=== PATIENT | male | born 1955 | race Hispanic/Latino ===

== ENCOUNTER 2019-09-25 01:18 | Emergency (ER) | payer BC ==
--- OUTSIDE RECORDS SUMMARY | 2019-09-25 01:21 | XMS REPORT ---
:1955 Author Organization [facility] t Address [address] [place] [address] Care Team Providers Name Role Phone VANIA ALONSO M.D. Unavailable Unavailable FRIDA ALVAREZ M.D. Unavailable Unavailable Problems Condition Condition Condition Status Onset Resolution Last Treatin g Comments Name Details Category Date Date Treatment Clinician Date Hand pain, Hand pain, Problem Active right right Trigger Trigger Problem Active middle middle finger of finger of right hand right hand Allergies, Adverse Reactions, Alerts This patient has no known allergies or adverse reactions. Medications Ordered Filled Start Stop Current Ordering Indication Dosage Frequency Signature Comments Components Medication Medication Date Date Medication? Clinician (SIG) Name Name COMPOUND COMPOUND Yes FRIDA ALVAREZ AIFLUR[place] MEDICATION MEDICATION 8-22 M.D. OFEN 00:00: 10%,AMANTA 00 DINE 10%,CYCLOB ENZAPRINE 2%,BACLOFE N 2%,GABAPEN TIN 6%,LIDOCAI NE 2%GIO. TO AFF. AREA 1-2GM 3-4X DAILY [id number] Encounters Start End Encounter Admission Attending Care Care Encounter Date/Time Date/Time Type Type Clinicians Facility Department ID 2017-05-28 2017-05-28 Appointment [facility] 3 [id number] 09:30:00 09:30:00 ; VANIA ALONSO, at [facility] Yusra CARO M.D. 2017-05-14 2017-05-14 Appointment JASE ALVAREZ [id number] 16:00:00 16:00:00 ; FRIDA ALVAREZ M.D. EVAN, M.D. 2017-04-16 2017-04-16 Appointment JASE ALAVREZ [id number] 11:00:00 11:00:00 ; KIMFRIDA M.D. EVAN, M.D. 2016-11-07 2016-11-07 [facility] [id number] 13:45:00 13:45:00 ; FRIDA ALVAREZ M.D. EVAN, M.D. 2016-08-08 2016-08-08 Appointment [facility] [id number] 13:45:00 13:45:00 ; FRIDA ALVAREZ M.D. EVAN, M.D. 2016-01-21 2016-01-21 Appointment [facility] [id number] 10:15:00 10:15:00 ; FRIDA ALVAREZ M.D. EVAN, M.D.
[2019-09-25] MEDS ORDERED: FENTANYL CITR 100 MCG/2 ML ONE (02:17)
[2019-09-25 02:20] LABS: Absolute Lymphocytes (CBC) 3.2 K/uL (0.7-4.9); Basophils % 0.6 % (0-1.3); Hematocrit 42.6 % (39.6-49.0); Lymphocytes % 40.4 % (15.3-44.8); RBC Red Blood Cell Count 4.66 M/uL (4.33-5.43)
[2019-09-25] MEDS ORDERED: ONDANSETRON 4 MG/2 ML VIAL ONE (02:27)
[2019-09-25] MEDS ORDERED: MORPHINE 4 MG/ML SYR ONE (02:27)
[2019-09-25 02:29] LABS: Urine Blood TRACE (NEG); Urine Glucose NEGATIVE (NEG); Urine Protein NEGATIVE (NEG)
[2019-09-25 02:41] LABS: ALT/SGPT 32 U/L (12-78); AST/SGOT 22 U/L (15-37); Albumin 3.7 g/dL (3.4-5.0); Alkaline Phosphatase 72 U/L (45-117); BUN Blood Urea Nitrogen 16 mg/dL (7-18); Bicarbonate 27 mmol/L (21-32); Bilirubin Direct < 0.1 mg/dL (0-0.2); Bilirubin Total 0.1 mg/dL (0.2-1.0); Glucose Level 94 mg/dL (74-106); Lipase 97 U/L (73-393); Potassium 4.1 mmol/L (3.5-5.1); Protein, Total 7.3 g/dL (6.4-8.2); Sodium Level 143 mmol/L (136-145)
--- NOTE | 2019-09-25 02:58 | ER ---
Nurse's Notes [facility] Name: Patrick Brock Age: 63 yrs Sex: Male : 1955 Arrival Date: 09/25/2019 Time: 01:21 Bed 5 Private MD: Diagnosis: Low back pain-left Presentation: 09/24 01:38 Chief complaint: Patient states: Back pain a 7/10, non radiating, denies recent injury sg or trauma. Coronavirus screen: Proceed with normal triage. Ebola Screen: Patient negative for fever greater than or equal to 101.5 degrees Fahrenheit, and additional compatible Ebola Virus Disease symptoms Patient denies exposure to infectious person. Patient denies travel to an Ebola-affected area in the 21 days before illness onset. No symptoms or risks identified at this time. Initial Sepsis Screen: Does the patient meet any 2 criteria? No. Patient's initial sepsis screen is negative. Does the patient have a suspected source of infection? No. Patient's initial sepsis screen is negative. Risk Assessment: Do you want to hurt yourself or someone else? Patient reports no desire to harm self or others. Onset of symptoms was September 25, 2019. Care prior to arrival: None. 01:38 Method Of Arrival: Ambulatory sg 01:38 Acuity: ROB 4 sg Triage Assessment: 01:40 General: Appears in no apparent distress. uncomfortable, Behavior is calm, cooperative, rr5 appropriate for age. Musculoskeletal: Capillary refill < 3 seconds. Historical: - Allergies: 01:39 No Known Allergies; sg - PSHx: 01:39 nose surgery; sg - Immunization history:: Adult Immunizations up to date. - Social history:: Smoking status: Patient denies any tobacco usage or history of. Screenin:01 Abuse screen: Denies threats or abuse. Denies injuries from another. Nutritional rr5 screening: No deficits noted. Tuberculosis screening: No symptoms or risk factors identified. Fall Risk IV access (20 points). Total Espinoza Fall Scale indicates No Risk (0-24 pts). Assessment: 01:40 General: Appears in no apparent distress. uncomfortable, Behavior is calm, cooperative, rr5 appropriate for age. 01:40 Pain: Complains of pain in left mid back Pain radiates to mid back area Pain currently rr5 is 7 out of 10 on a pain scale. Quality of pain is described as aching, Pain began gradually, Is intermittent. Neuro: Level of Consciousness is awake, alert, obeys commands, Oriented to person, place, time, situation, Appropriate for age. Cardiovascular: Capillary refill < 3 seconds Patient's skin is warm and dry. Respiratory: Airway is patent Respiratory effort is even, unlabored, Respiratory pattern is regular, symmetrical. GI: Abdomen is round. : Reports pain in left flank(s). EENT: No signs and/or symptoms were reported regarding the EENT system. Derm: Skin is intact, is healthy with good turgor, Skin temperature is warm. Musculoskeletal: Circulation, motion, and sensation intact. Capillary refill < 3 seconds, Reports pain in mid back area. 02:30 Reassessment: Patient appears in no apparent distress at this time. Patient is alert, rr5 oriented x 3, equal unlabored respirations, skin warm/dry/pink. awaiting for results. 02:30 Pain: Pain currently is 3 out of 10 on a pain scale. rr5 03:20 Reassessment: Patient appears in no apparent distress at this time. Patient is alert, rr5 oriented x 3, equal unlabored respirations, skin warm/dry/pink. discharge instruction given and explained without complaints made. Patient states feeling better. Patient states symptoms have improved. Vital Signs: 01:38 BP 144 / 70; Pulse 72; Resp 18; Temp 98.2; Pulse Ox 100% on R/A; sg ED Course: 01:21 Patient arrived in ED. ag3 01:33 [facility] cp 01:33 Abelardo Bryant MD is Attending Physician. cp 01:38 Triage completed. sg 01:38 Arm band placed on. sg 01:40 Patient has correct armband on for positive identification. Placed in gown. Bed in low rr5 position. Call light in reach. Pulse ox on. NIBP on. 01:42 Celso Johnson, LIONEL is Primary Nurse. jb4 02:01 Inserted saline lock: 20 gauge in right antecubital area, using aseptic technique. rr5 Blood collected. 02:20 CT Stone Protocol In Process Unspecified. EDMS 03:25 No provider procedures requiring assistance completed. IV discontinued, intact, rr5 bleeding controlled, No redness/swelling at site. Pressure dressing applied. Administered Medications: 02:23 Drug: Zofran (Ondansetron) 4 mg Route: IVP; Site: right antecubital; rr5 03:20 Follow up: Response: No adverse reaction rr5 02:25 Drug: morphine 4 mg {Note: rass 0.} Route: IVP; Site: right antecubital; rr5 03:20 Follow up: Response: No adverse reaction; Pain is decreased; RASS: Alert and Calm (0) rr5 03:28 Not Given (Patient Refused): TORadol - Ketorolac 15 mg IVP once sg 03:28 Not Given (Patient Refused): Flexeril 10 mg PO once sg Outcome: 02:56 Discharge ordered by MD. cp 03:25 Discharged to home ambulatory. rr5 03:25 Condition: stable 03:25 Discharge instructions given to patient, Instructed on discharge instructions, follow up and referral plans. medication usage, Demonstrated understanding of instructions, follow-up care, medications, Prescriptions given X 3. 03:28 Patient left the ED. sg Signatures: Dispatcher [employer] EDMS Tony Navarro RN RN sg Gomez Lewis, PA PA Celso Christianson, RN RN jb4 Mari Sutherland Raymond, RN RN rr5
--- NOTE | 2019-09-25 02:58 | EDPHYS ---
Physician Documentation [facility] Name: Patrick Brock Age: 63 yrs Sex: Male : 1955 Arrival Date: 09/25/2019 Time: 01:21 Bed 5 Private MD: ED Physician Abelardo Bryant HPI: 09/24 01:44 This 63 yrs old Male presents to ER via Ambulatory with complaints of Back cp Pain. 01:44 The patient presents with pain that is acute, with no known mechanism of injury. The cp symptoms are located in the left low back and left mid back. Onset: The symptoms/episode began/occurred this morning. The pain radiates to the abdomen. Associated signs and symptoms: Pertinent negatives: dysuria, fever, incontinence, numbness, urinary retention, vomiting, weakness. The problem was sustained from unknown cause. Historical: - Allergies: 01:39 No Known Allergies; sg - PSHx: 01:39 nose surgery; sg - Immunization history:: Adult Immunizations up to date. - Social history:: Smoking status: Patient denies any tobacco usage or history of. ROS: 01:50 Constitutional: Negative for body aches, chills, fever, poor PO intake. cp 01:50 Eyes: Negative for injury, pain, redness, and discharge. cp 01:50 ENT: Negative for drainage from ear(s), ear pain, sore throat, difficulty swallowing, difficulty handling secretions. 01:50 Cardiovascular: Negative for chest pain. 01:50 Respiratory: Negative for cough, shortness of breath, wheezing. 01:50 Abdomen/GI: Positive for abdominal pain, of the anterior aspect of left lateral abdomen and posterior aspect of left lateral abdomen, Negative for nausea, vomiting, and diarrhea, constipation, bowel incontinence. 01:50 Back: Positive for pain at rest, pain with movement, of the left low back and left mid back, Negative for injury or acute deformity. 01:50 : Negative for urinary symptoms, difficulty urinating, bladder incontinence, testicular pain 01:50 MS/extremity: Negative for injury or acute deformity, pain, paresthesias. 01:50 Neuro: Negative for numbness, weakness. 01:50 All other systems are negative. Exam: 01:55 Constitutional: The patient appears in no acute distress, alert, awake, non-toxic, well cp developed, well nourished, uncomfortable. 01:55 Head/Face: Normocephalic, atraumatic. cp 01:55 Eyes: Periorbital structures: appear normal, Conjunctiva: normal, no exudate, no injection, Sclera: no appreciated abnormality, Lids and lashes: appear normal, bilaterally. 01:55 ENT: External ear(s): are unremarkable, Nose: is normal, Mouth: is normal, Posterior pharynx: Airway: no evidence of obstruction, patent. 01:55 Neck: ROM/movement: is normal, is supple, without pain, no range of motions limitations. 01:55 Chest/axilla: Inspection: normal, Palpation: is normal, no crepitus, no tenderness. 01:55 Cardiovascular: Rate: normal, Rhythm: regular. 01:55 Respiratory: the patient does not display signs of respiratory distress, Respirations: normal, no use of accessory muscles, labored breathing, is not present, Breath sounds: are clear throughout, no decreased breath sounds. 01:55 Abdomen/GI: Inspection: abdomen appears normal, Bowel sounds: active, all quadrants, Palpation: abdomen is soft and non-tender, in all quadrants. 01:55 Back: pain, that is moderate, of the left low back and left mid back, ROM is painful, with all movement. 01:55 Skin: no rash present. 01:55 Neuro: Orientation: to person, place \T\ time. Mentation: is normal, Motor: moves all fours, strength is normal, Sensation: is normal, Gait: is steady, Deep tendon reflexes are 2+ (normal) in the right patellar, right Achilles, left patellar and left Achilles. Vital Signs: 01:38 BP 144 / 70; Pulse 72; Resp 18; Temp 98.2; Pulse Ox 100% on R/A; sg MDM: 01:39 Patient medically screened. cp 02:00 Differential diagnosis: Cholelithiasis Pyelonephritis Ureterolithiasis back pain. cp 02:55 ED course: [place] prescription monitoring program reports narcotic score of 80 and cp sedative score of 40 for patient. 02:55 Data reviewed: vital signs, nurses notes, lab test result(s), radiologic studies, CT cp scan. 02:55 Counseling: I had a detailed discussion with the patient and/or guardian regarding: the cp historical points, exam findings, and any diagnostic results supporting the discharge/admit diagnosis, lab results, radiology results, the need for outpatient follow up, a family practitioner, to return to the emergency department if symptoms worsen or persist or if there are any questions or concerns that arise at home. Response to treatment: the patient's symptoms have markedly improved after treatment, VSS. Pain improved with meds, and as a result, I will discharge patient. 09/24 01:46 Order name: Basic Metabolic Panel; Complete Time: 02:49 cp 09/24 02:49 Interpretation: Normal except: CL 108; GFR 77. 09/24 01:46 Order name: CBC with Diff; Complete Time: 02:35 cp 09/24 02:50 Interpretation: Reviewed. 09/24 01:46 Order name: Creatinine for Radiology; Complete Time: 02:49 cp 09/24 02:50 Interpretation: Reviewed. 09/24 01:46 Order name: Hepatic Function; Complete Time: 02:49 cp 09/24 02:49 Interpretation: Normal except: BILIT 0.1; GLOB 3.6; A/G 1.0. 09/24 01:46 Order name: Lipase; Complete Time: 02:49 cp 09/24 02:50 Interpretation: Reviewed. 09/24 01:46 Order name: Urine Microscopic Only 09/24 01:46 Order name: IV Saline Lock; Complete Time: 02:37 cp 09/24 01:46 Order name: Labs collected and sent; Complete Time: 02:37 cp 09/24 01:46 Order name: CT Stone Protocol 09/24 02:22 Order name: Urine Dipstick--Ancillary (enter results); Complete Time: 02:35 mw2 09/24 02:36 Interpretation: Normal except: UBLD TRACE. 09/24 01:46 Order name: Urine Dipstick-Ancillary (obtain specimen); Complete Time: 02:37 cp Administered Medications: 02:23 Drug: Zofran (Ondansetron) 4 mg Route: IVP; Site: right antecubital; rr5 03:20 Follow up: Response: No adverse reaction rr5 02:25 Drug: morphine 4 mg {Note: rass 0.} Route: IVP; Site: right antecubital; rr5 03:20 Follow up: Response: No adverse reaction; Pain is decreased; RASS: Alert and Calm (0) rr5 03:28 Not Given (Patient Refused): TORadol - Ketorolac 15 mg IVP once sg 03:28 Not Given (Patient Refused): Flexeril 10 mg PO once sg Disposition: 03:41 Co-signature as Attending Physician, Abelardo Bryant MD. [email or web address] Disposition: 09/25/19 02:56 Discharged to Home. Impression: Low back pain - left. - Condition is Stable. - Discharge Instructions: Back Pain, Adult, Back Exercises. - Prescriptions for Cyclobenzaprine 10 mg Oral Tablet - take 1 tablet by ORAL route every 8 hours As needed no driving while taking medication; 20 tablet. Diclofenac Sodium 75 mg Oral Tablet Sustained Release - take 1 tablet by ORAL route 2 times per day; 30 tablet. Tramadol 50 mg Oral Tablet - take 1 tablet by ORAL route every 8 hours as needed. No driving while taking medication; 20 tablet. - Medication Reconciliation Form, Thank You Letter, Antibiotic Education, Prescription Opioid Use form. - Follow up: Private Physician; When: 2 - 3 days; Reason: Recheck today's complaints. - Problem is new. - Symptoms have improved. Signatures: Dispatcher [employer] EDTony Myers RN RN Abelardo Hernandez MD MD pkl Gomez Lewis PA PA cp Roque, Raymond, RN RN rr5 Corrections: (The following items were deleted from the chart) 03:28 02:56 09/25/2019 02:56 Discharged to Home. Impression: Low back pain - left. Condition sg is Stable. Forms are Medication Reconciliation Form, Thank You Letter, Antibiotic Education, Prescription Opioid Use. Follow up: Private Physician; When: 2 - 3 days; Reason: Recheck today's complaints. Problem is new. Symptoms have improved. cp
[2019-09-25 03:02] LABS: Urine Bacteria <20 /HPF (NONE SEEN); Urine Culture Reflex Order NOT NEEDED; Urine RBC <5 /HPF (NONE SEEN)
[2019-09-25 03:35] VITALS: BP 144/70; TEMP 98.2; O2SAT 100
--- NOTE | 2019-09-25 12:59 | RAD REPORT ---
EXAM DESCRIPTION: CT - Stone Protocol - 09/25/2019 6:53 am CLINICAL HISTORY: Left mid and low back pain TECHNIQUE: Contiguous axial images obtained through the abdomen and pelvis without IV contrast. Marissa nal and sagittal reformatted images were provided. This exam was performed according to our departmental dose-optimization program, which includes autom ated exposure control, adjustment of the mA and/or kV according to patient size and/or use of iterati ve reconstruction technique. COMPARISON: None available for comparison. FINDINGS: Lung bases: No focal consolidation. Coronary artery calcification. Liver: 8 mm right posterior hepatic hypodensity which is too small to characterize. Gallbladder and biliary system: Unremarkable Pancreas: Grossly unremarkable Spleen: Grossly unremarkable Adrenals: Unremarkable Kidneys: No calculi. No hydronephrosis. Bowel: Moderate stool. No obstruction. No appreciable mucosal thickening. Appendix: Normal caliber appendix. No findings to suggest acute appendicitis. Urinary bladder: Unremarkable Reproductive: Unremarkable as visualized Lymph nodes: No pathologically enlarged lymph nodes. Peritoneum: No focal fluid collection. No free air. Vessels: Mild atherosclerotic disease. No abdominal aortic aneurysm. Abdominal wall: Unremarkable Bones: Multilevel spondylosis. No acute fracture. IMPRESSION: 1. No acute abnormality identified within the abdomen and pelvis. 2. Other findings as above. Electronically signed by: Saran Clarke MD 09/25/2019 2:36 AM CDT Due to temporary technical issues with the PACS/Fluency reporting system, reports are being signed by the in house radiologist as a courtesy to ensure prompt reporting. The interpreting radiologist is f ully responsible for the content of the report.
== END 2019-09-25 03:28 | disposition home or self-care (01) ==
LOC: ER 01:18
DX: M54.5 Low back pain (principal)
CPT/HCPCS: 85025; 80048; 36415; 80076; 83690; 76377; 74176; 96375; 96374; 99284; J2405; 81003; 81015; J3010

== ENCOUNTER 2021-11-25 17:14 | Emergency (ER) | payer BC ==
--- OUTSIDE RECORDS SUMMARY | 2021-11-25 17:18 | XMS REPORT | Continuity of Care Document ---
:1955 Author Organization [facility] t Address [address] [place] [address] Care Team Providers Name Role Phone PCP, DOES NOT HAVE A Primary Care Physician Unavailable [email or web address] Attending Clinician Unavailable Rayshawn Mckenna Attending Clinician [phone] Efra OLIVO S Attending Clinician Charlee KRAUS Attending Clinician Unavailable Doctor Unassigned, Name Attending Clinician Unavailable David Herrera DO Attending Clinician Kaylyn WHITT L Attending Clinician Kaila PATIÑO Attending Clinician Unavailable Pob, Lab Main Attending Clinician Unavailable Pcp, Does Not Have A Attending Clinician Human LICENSED APPRAISER, F Attending Clinician Coy FLOWERS, T Attending Clinician Unavailable Lab, Fam Pob I Attending Clinician Unavailable Anene LICENSED APPRAISER Attending Clinician ANENE Attending Clinician Unavailable GAVIN Attending Clinician Unavailable KIM Attending Clinician Unavailable [email or web address] Admitting Clinician Unavailable Payers Payer Name Policy Type Policy Number Effective Date Expiration Date Charlee pan[place] [id number] 2020 00:00:00 [place] Problems Condition Condition Condition Status Onset Resolution Last Treating Co mments Source Name Details Category Date Date Treatment Clinician Date Hand pain, Hand pain, Problem Active [facility] right right Physici ans Trigger Trigger Problem Active [facility] middle middle Physici finger of finger of ans right hand right hand No known No known Disease Unive rs active active ity of problems problems [facility] Allergies, Adverse Reactions, Alerts Allergy Allergy Status Severity Reaction(s) Onset Inactive Treating Comm ents Source Name Type Date Date Clinician NO KNOWN Drug Active Univers ALLERGIE Class ity of S [facility] Social History Social Habit Start Date Stop Date Quantity Comments Source Exposure to Not sure [facility] SARS-CoV-2 (event) Medica l Branch History of tobacco Smoker Univer [facility] use [facility] Tobacco use and 2020-09-28 2020-09-28 Never used [facility] exposure 00:00:00 00:00:00 [facility] Sex [birth year] [facility] 00:00:00 00:00:00 [facility] Smoking Status Start Date Stop Date Source Unknown if ever smoked [facility] Former smoker 2020-09-28 00:00:00 2020-09-28 00:00:00 [facility] Medications Ordered Filled Start Stop Current Ordering Indication Dosage Frequency Signature Comments Components Source Medication Medication Date Date Medication? Clinician (SIG) Name Name meloxicam 2020- No [id number] 15mg Take 1 Univers 15 mg 4-30 05-31 tablet by ity of tablet 00:00: 04:59 mouth [place] 00 :00 daily for Medical 30 days. Branch meloxicam 2020- No [id number] 15mg Take 1 Univers 15 mg 4-30 05-31 tablet by ity of tablet 00:00: 04:59 mouth [place] 00 :00 daily for Medical 30 days. Branch meloxicam 2020- No [id number] 15mg Take 1 Univers 15 mg 4-30 05-31 tablet by ity of tablet 00:00: 04:59 mouth [place] 00 :00 daily for Medical 30 days. Branch triamcinolo 2020- No [id number] 40mg Univers ne -13 09-15 ity of acetonide 22:30: 21:23 [place] (KENALOG) 00 :00 Medical injection Branch 40 mg triamcinolo 2020- No [id number] 40mg 40 mg, Univers ne -15 -15 Intra-leeanna ity of acetonide 22:30: 21:23 [place], [place] (KENALOG) 00 :00 ONCE, 1 Medical injection dose, Salima Branc h 40 mg 09/13/20 at 1730, Routine triamcinolo 2020-2020- No [id number] 40mg Univers ne 09-13 ity of acetonide 22:30: 21:23 [place] (KENALOG) 00 :00 Medical injection Branch 40 mg triamcinolo 2020-2020- No [id number] 40mg 40 mg, Univers ne 09-13 Intra-leeanna ity of acetonide 22:30: 21:23 [place], [place] (KENALOG) 00 :00 ONCE, 1 Medical injection dose, Salima Branc h 40 mg 09/13/20 at 1730, Routine diclofenac 1-0 Yes 75mg Take 1 Unive rs 75 mg EC 3-26 tablet by ity of tablet 00:00: mouth (two) Medical times Branch daily with meals. diclofenac 2021-0 Yes 75mg Take 1 Unive rs 75 mg EC 3-26 tablet by ity of tablet 00:00: mouth (two) Medical times Branch daily with meals. diclofenac 2021-0 Yes 75mg Take 1 Unive rs 75 mg EC 3-26 tablet by ity of tablet 00:00: mouth (two) Medical times Branch daily with meals. diclofenac 2021-0 Yes 75mg Take 1 Unive rs 75 mg EC 3-26 tablet by ity of tablet 00:00: mouth [place] (two) Medical times Branch daily with meals. diclofenac 2021-0 Yes 75mg Take 1 Unive rs 75 mg EC 3-26 tablet by ity of tablet 00:00: mouth [place] (two) Medical times Branch daily with meals. diclofenac 2021-0 Yes 75mg Take 1 Unive rs 75 mg EC 3-26 tablet by ity of tablet 00:00: mouth [place] (two) Medical times Branch daily with meals. diclofenac 2021-0 Yes 75mg Take 1 Unive rs 75 mg EC 3-26 tablet by ity of tablet 00:00: mouth [place] (two) Medical times Branch daily with meals. diclofenac 2021-0 Yes 75mg Take 1 Unive rs 75 mg EC 3-26 tablet by ity of tablet 00:00: mouth (two) Medical times Branch daily with meals. diclofenac 2020- No 75mg Take 1 Univ ers 75 mg EC 3-26 04-30 tablet by ity o f tablet 00:00: 00:00 mouth 2 [place] 00 :00 (two) Medical times [place] daily with meals. diclofenac 2020- No 75mg Take 1 Univ ers 75 mg EC 3-26 04-30 tablet by ity o f tablet 00:00: 00:00 mouth 2 [place] 00 :00 (two) Medical times [place] daily with meals. meloxicam 2020- No [id number] 15mg Take 1 Univers 15 mg 3-25 04-25 tablet by ity of tablet 00:00: 04:59 mouth [place] 00 :00 daily for Medical 30 days. [place] meloxicam 2020- No [id number] 15mg Take 1 Univers 15 mg 3-25 04-25 tablet by ity of tablet 00:00: 04:59 mouth [place] 00 :00 daily for Medical 30 days. [place] meloxicam 2020- No [id number] 15mg Take 1 Univers 15 mg 3-25 04-25 tablet by ity of tablet 00:00: 04:59 mouth [place] 00 :00 daily for Medical 30 days. [place] meloxicam 2020- No [id number] 15mg Take 1 Univers 15 mg 3-25 04-25 tablet by ity of tablet 00:00: 04:59 mouth [place] 00 :00 daily for Medical 30 days. [place] meloxicam 2020- No [id number] 15mg Take 1 Univers 15 mg 3-25 04-25 tablet by ity of tablet 00:00: 04:59 mouth [place] 00 :00 daily for Medical 30 days. [place] meloxicam 2020- No [id number] 15mg Take 1 Univers 15 mg 3-25 04-25 tablet by ity of tablet 00:00: 04:59 mouth [place] 00 :00 daily for Medical 30 days. [place] meloxicam 2020- No [id number] 15mg Take 1 Univers 15 mg 3-25 04-25 tablet by ity of tablet 00:00: 04:59 mouth [place] 00 :00 daily for Medical 30 days. [place] meloxicam 2020- No [id number] 15mg Take 1 Univers 15 mg 3-25 04-25 tablet by ity of tablet 00:00: 04:59 mouth [place] 00 :00 daily for Medical 30 days. Branch meloxicam 2020- No [id number] 15mg Take 1 Univers 15 mg 3-25 04-25 tablet by ity of tablet 00:00: 04:59 mouth [place] 00 :00 daily for Medical 30 days. Branch meloxicam 2020- No [id number] 15mg Take 1 Univers 15 mg 3-25 04-25 tablet by ity of tablet 00:00: 04:59 mouth [place] 00 :00 daily for Medical 30 days. Branch acetaminoph 2020- Yes 4647 2{tbl} Take 2 Un jose en-codeine 3-05 tablets by ity of (TYLENOL-CO 00:00: mouth [place] DEINE #3) 00 every 4 Medical 300-30 mg (four) Branch tablet hours as needed for Pain (scale 4-6) or Pain (scale 7-10). Indication s: acute pain acetaminoph 2020-0 Yes 4647 2{tbl} Take 2 Un jose en-codeine 3-05 tablets by ity of (TYLENOL-CO 00:00: mouth [place] DEINE #3) 00 every 4 Medical 300-30 mg (four) Branch tablet hours as needed for Pain (scale 4-6) or Pain (scale 7-10). Indication s: acute pain acetaminoph 2020-0 Yes 4647 2{tbl} Take 2 Un jose en-codeine 3-05 tablets by ity of (TYLENOL-CO 00:00: mouth [place] DEINE #3) 00 every 4 Medical 300-30 mg (four) Branch tablet hours as needed for Pain (scale 4-6) or Pain (scale 7-10). Indication s: acute pain acetaminoph 2020-0 Yes 4647 2{tbl} Take 2 Un jose en-codeine 3-05 tablets by ity of (TYLENOL-CO 00:00: mouth [place] DEINE #3) 00 every 4 Medical 300-30 mg (four) Branch tablet hours as needed for Pain (scale 4-6) or Pain (scale 7-10). Indication s: acute pain acetaminoph 2020-0 Yes 4647 2{tbl} Take 2 Un jose en-codeine 3-05 tablets by ity of (TYLENOL-CO 00:00: mouth [place] DEINE #3) 00 every 4 Medical 300-30 mg (four) Branch tablet hours as needed for Pain (scale 4-6) or Pain (scale 7-10). Indication s: acute pain acetaminoph 2021-0 Yes 4647 2{tbl} Take 2 Un jose en-codeine 3-05 tablets by ity of (TYLENOL-CO 00:00: mouth [place] DEINE #3) 00 every 4 Medical 300-30 mg (four) Branch tablet hours as needed for Pain (scale 4-6) or Pain (scale 7-10). Indication s: acute pain acetaminoph 2021-0 Yes 4647 2{tbl} Take 2 Un jose en-codeine 3-05 tablets by ity of (TYLENOL-CO 00:00: mouth [place] DEINE #3) 00 every 4 Medical 300-30 mg (four) Branch tablet hours as needed for Pain (scale 4-6) or Pain (scale 7-10). Indication s: acute pain acetaminoph 2021-0 Yes 4647 2{tbl} Take 2 Un jose en-codeine 3-05 tablets by ity of (TYLENOL-CO 00:00: mouth [place] DEINE #3) 00 every 4 Medical 300-30 mg (four) Branch tablet hours as needed for Pain (scale 4-6) or Pain (scale 7-10). Indication s: acute pain acetaminoph 2021-0 Yes 4647 2{tbl} Take 2 Un jose en-codeine 3-05 tablets by ity of (TYLENOL-CO 00:00: mouth [place] DEINE #3) 00 every 4 Medical 300-30 mg (four) Branch tablet hours as needed for Pain (scale 4-6) or Pain (scale 7-10). Indication s: acute pain acetaminoph 2021-0 Yes 4647 2{tbl} Take 2 Un jose en-codeine 3-05 tablets by ity of (TYLENOL-CO 00:00: mouth [place] DEINE #3) 00 every 4 Medical 300-30 mg (four) Branch tablet hours as needed for Pain (scale 4-6) or Pain (scale 7-10). Indication s: acute pain acetaminoph 2021-0 Yes 4647 2{tbl} Take 2 Un jose en-codeine 3-05 tablets by ity of (TYLENOL-CO 00:00: mouth [place] DEINE #3) 00 every 4 Medical 300-30 mg (four) Branch tablet hours as needed for Pain (scale 4-6) or Pain (scale 7-10). Indication s: acute pain acetaminoph 2021-0 Yes 4647 2{tbl} Take 2 Un jose en-codeine 3-05 tablets by ity of (TYLENOL-CO 00:00: mouth [place] DEINE #3) 00 every 4 Medical 300-30 mg (four) Branch tablet hours as needed for Pain (scale 4-6) or Pain (scale 7-10). Indication s: acute pain acetaminoph 2021-0 Yes 4647 2{tbl} Take 2 Un jose en-codeine 3-05 tablets by ity of (TYLENOL-CO 00:00: mouth [place] DEINE #3) 00 every 4 Medical 300-30 mg (four) Branch tablet hours as needed for Pain (scale 4-6) or Pain (scale 7-10). Indication s: acute pain acetaminoph 2021-0 Yes 4647 2{tbl} Take 2 Un jose en-codeine 3-05 tablets by ity of (TYLENOL-CO 00:00: mouth [place] DEINE #3) 00 every 4 Medical 300-30 mg (four) Branch tablet hours as needed for Pain (scale 4-6) or Pain (scale 7-10). Indication s: acute pain acetaminoph 2021-0 Yes 4647 2{tbl} Take 2 Un jose en-codeine 3-05 tablets by ity of (TYLENOL-CO 00:00: mouth [place] DEINE #3) 00 every 4 Medical 300-30 mg (four) Branch tablet hours as needed for Pain (scale 4-6) or Pain (scale 7-10). Indication s: acute pain acetaminoph 2021-0 Yes 4647 2{tbl} Take 2 Un jose en-codeine 3-05 tablets by ity of (TYLENOL-CO 00:00: mouth [place] DEINE #3) 00 every 4 Medical 300-30 mg (four) Branch tablet hours as needed for Pain (scale 4-6) or Pain (scale 7-10). Indication s: acute pain acetaminoph 2021-0 Yes 4647 2{tbl} Take 2 Un jose en-codeine 3-05 tablets by ity of (TYLENOL-CO 00:00: mouth [place] DEINE #3) 00 every 4 Medical 300-30 mg (four) Branch tablet hours as needed for Pain (scale 4-6) or Pain (scale 7-10). Indication s: acute pain acetaminoph 2021-0 Yes 4647 2{tbl} Take 2 Un jose en-codeine 3-05 tablets by ity of (TYLENOL-CO 00:00: mouth [place] DEINE #3) 00 every 4 Medical 300-30 mg (four) Branch tablet hours as needed for Pain (scale 4-6) or Pain (scale 7-10). Indication s: acute pain acetaminoph 2021-0 Yes 4647 2{tbl} Take 2 Un jose en-codeine 3-05 tablets by ity of (TYLENOL-CO 00:00: mouth [place] DEINE #3) 00 every 4 Medical 300-30 mg (four) Branch tablet hours as needed for Pain (scale 4-6) or Pain (scale 7-10). Indication s: acute pain acetaminoph 2021-0 Yes 4647 2{tbl} Take 2 Un jose en-codeine 3-05 tablets by ity of (TYLENOL-CO 00:00: mouth [place] DEINE #3) 00 every 4 Medical 300-30 mg (four) Branch tablet hours as needed for Pain (scale 4-6) or Pain (scale 7-10). Indication s: acute pain acetaminoph 2021-0 Yes 4647 2{tbl} Take 2 Un jose en-codeine 3-05 tablets by ity of (TYLENOL-CO 00:00: mouth [place] DEINE #3) 00 every 4 Medical 300-30 mg (four) Branch tablet hours as needed for Pain (scale 4-6) or Pain (scale 7-10). Indication s: acute pain acetaminoph 2021-0 Yes 4647 2{tbl} Take 2 Un jose en-codeine 3-05 tablets by ity of (TYLENOL-CO 00:00: mouth [place] DEINE #3) 00 every 4 Medical 300-30 mg (four) Branch tablet hours as needed for Pain (scale 4-6) or Pain (scale 7-10). Indication s: acute pain acetaminoph 2021-0 Yes 4647 2{tbl} Take 2 Un jose en-codeine 3-05 tablets by ity of (TYLENOL-CO 00:00: mouth [place] DEINE #3) 00 every 4 Medical 300-30 mg (four) Branch tablet hours as needed for Pain (scale 4-6) or Pain (scale 7-10). Indication s: acute pain acetaminoph 2021-0 Yes 4647 2{tbl} Take 2 Un jose en-codeine 3-05 tablets by ity of (TYLENOL-CO 00:00: mouth [place] DEINE #3) 00 every 4 Medical 300-30 mg (four) Branch tablet hours as needed for Pain (scale 4-6) or Pain (scale 7-10). Indication s: acute pain acetaminoph 2021-0 Yes 4647 2{tbl} Take 2 Un jose en-codeine 3-05 tablets by ity of (TYLENOL-CO 00:00: mouth [place] DEINE #3) 00 every 4 Medical 300-30 mg (four) Branch tablet hours as needed for Pain (scale 4-6) or Pain (scale 7-10). Indication s: acute pain meloxicam 1-0 Yes 15mg Take 1 Univer s 15 mg 2-10 tablet by ity of tablet 00:00: mouth [place] 00 daily. Medical Branch meloxicam 2021-0 Yes 15mg Take 1 Univer s 15 mg 2-10 tablet by ity of tablet 00:00: mouth [place] 00 daily. Medical Branch meloxicam 2021-0 Yes 15mg Take 1 Univer s 15 mg 2-10 tablet by ity of tablet 00:00: mouth [place] 00 daily. Medical Branch meloxicam 2021-0 Yes 15mg Take 1 Univer s 15 mg 2-10 tablet by ity of tablet 00:00: mouth [place] 00 daily. Medical Branch meloxicam 2021-0 Yes 15mg Take 1 Univer s 15 mg 2-10 tablet by ity of tablet 00:00: mouth [place] 00 daily. Medical Branch meloxicam 2021-0 Yes 15mg Take 1 Univer s 15 mg 2-10 tablet by ity of tablet 00:00: mouth [place] 00 daily. Medical Branch meloxicam 1-0 Yes 15mg Take 1 Univer s 15 mg 2-10 tablet by ity of tablet 00:00: mouth [place] 00 daily. Medical Branch meloxicam 1-0 Yes 15mg Take 1 Univer s 15 mg 2-10 tablet by ity of tablet 00:00: mouth [place] 00 daily. Medical Branch meloxicam 2021-0 Yes 15mg Take 1 Univer s 15 mg 2-10 tablet by ity of tablet 00:00: mouth [place] 00 daily. Medical Branch meloxicam 202-0 Yes 15mg Take 1 Univer s 15 mg 2-10 tablet by ity of tablet 00:00: mouth [place] 00 daily. Medical Branch meloxicam 1-0 Yes 15mg Take 1 Univer s 15 mg 2-10 tablet by ity of tablet 00:00: mouth [place] 00 daily. Medical Branch meloxicam 2020-0 Yes 15mg Take 1 Univer s 15 mg 2-10 tablet by ity of tablet 00:00: mouth [place] 00 daily. Medical Branch meloxicam 2020-0 Yes 15mg Take 1 Univer s 15 mg 2-10 tablet by ity of tablet 00:00: mouth [place] 00 daily. Medical Branch meloxicam 1-0 Yes 15mg Take 1 Univer s 15 mg 2-10 tablet by ity of tablet 00:00: mouth [place] 00 daily. Medical Branch meloxicam 1-0 Yes 15mg Take 1 Univer s 15 mg 2-10 tablet by ity of tablet 00:00: mouth [place] 00 daily. Medical Branch meloxicam 1-0 Yes 15mg Take 1 Univer s 15 mg 2-10 tablet by ity of tablet 00:00: mouth [place] 00 daily. Medical Branch meloxicam 2021-0 Yes 15mg Take 1 Univer s 15 mg 2-10 tablet by ity of tablet 00:00: mouth [place] 00 daily. Medical Branch meloxicam 2021-0 Yes 15mg Take 1 Univer s 15 mg 2-10 tablet by ity of tablet 00:00: mouth [place] 00 daily. Medical Branch meloxicam 2021-0 Yes 15mg Take 1 Univer s 15 mg 2-10 tablet by ity of tablet 00:00: mouth [place] 00 daily. Medical Branch meloxicam 2021-0 Yes 15mg Take 1 Univer s 15 mg 2-10 tablet by ity of tablet 00:00: mouth [place] 00 daily. Medical Branch meloxicam 1-0 Yes 15mg Take 1 Univer s 15 mg 2-10 tablet by ity of tablet 00:00: mouth [place] 00 daily. Medical Branch meloxicam 2020-0 Yes 15mg Take 1 Univer s 15 mg 2-10 tablet by ity of tablet 00:00: mouth [place] 00 daily. Medical Branch meloxicam 2020-0 Yes 15mg Take 1 Univer s 15 mg 2-10 tablet by ity of tablet 00:00: mouth [place] 00 daily. Medical Branch meloxicam 2020-0 Yes 15mg Take 1 Univer s 15 mg 2-10 tablet by ity of tablet 00:00: mouth [place] 00 daily. Medical Branch meloxicam 2020-0 Yes 15mg Take 1 Univer s 15 mg 2-10 tablet by ity of tablet 00:00: mouth [place] 00 daily. Medical Branch meloxicam 2020-0 Yes 15mg Take 1 Univer s 15 mg 2-10 tablet by ity of tablet 00:00: mouth [place] 00 daily. Medical Branch meloxicam 2020-0 Yes 15mg Take 1 Univer s 15 mg 2-10 tablet by ity of tablet 00:00: mouth [place] 00 daily. Medical Branch meloxicam 1-0 Yes 15mg Take 1 Univer s 15 mg 2-10 tablet by ity of tablet 00:00: mouth [place] 00 daily. Medical Branch meloxicam 1-0 Yes 15mg Take 1 Univer s 15 mg 2-10 tablet by ity of tablet 00:00: mouth [place] 00 daily. Medical Branch meloxicam 1-0 Yes 15mg Take 1 Univer s 15 mg 2-10 tablet by ity of tablet 00:00: mouth [place] 00 daily. Medical Branch meloxicam 2021-0 Yes 15mg Take 1 Univer s 15 mg 2-10 tablet by ity of tablet 00:00: mouth [place] 00 daily. Medical Branch meloxicam 2021-0 Yes 15mg Take 1 Univer s 15 mg 2-10 tablet by ity of tablet 00:00: mouth [place] 00 daily. Medical Branch meloxicam 2021-0 Yes 15mg Take 1 Univer s 15 mg 2-10 tablet by ity of tablet 00:00: mouth [place] 00 daily. [facility] meloxicam Yes 15mg Take 1 Univer s 15 mg 2-10 tablet by ity of tablet 00:00: mouth [place] 00 daily. [facility] meloxicam Yes [id number] 7.5mg Take 1 U nivers 7.5 mg 1-29 tablet by ity of tablet 00:00: mouth [place] 00 daily. [facility] meloxicam Yes [id number] 7.5mg Take 1 U nivers 7.5 mg 1-29 tablet by ity of tablet 00:00: mouth [place] 00 daily. [facility] Branch meloxicam Yes [id number] 7.5mg Take 1 U nivers 7.5 mg 1-29 tablet by ity of tablet 00:00: mouth [place] 00 daily. [facility] meloxicam Yes [id number] 7.5mg Take 1 U nivers 7.5 mg 1-29 tablet by ity of tablet 00:00: mouth [place] 00 daily. [facility] meloxicam Yes [id number] 7.5mg Take 1 U nivers 7.5 mg 1-29 tablet by ity of tablet 00:00: mouth [place] 00 daily. [facility] meloxicam Yes [id number] 7.5mg Take 1 U nivers 7.5 mg 1-29 tablet by ity of tablet 00:00: mouth [place] 00 daily. [facility] meloxicam Yes [id number] 7.5mg Take 1 U nivers 7.5 mg 1-29 tablet by ity of tablet 00:00: mouth [place] 00 daily. [facility] Branch meloxicam Yes [id number] 7.5mg Take 1 U nivers 7.5 mg 1-29 tablet by ity of tablet 00:00: mouth [place] 00 daily. [facility] Branch meloxicam 0 Yes [id number] 7.5mg Take 1 U nivers 7.5 mg 1-29 tablet by ity of tablet 00:00: mouth [place] 00 daily. [facility] meloxicam Yes [id number] 7.5mg Take 1 U nivers 7.5 mg 1-29 tablet by ity of tablet 00:00: mouth [place] 00 daily. [facility] meloxicam Yes [id number] 7.5mg Take 1 U nivers 7.5 mg 1-29 tablet by ity of tablet 00:00: mouth [place] 00 daily. [facility] meloxicam Yes [id number] 7.5mg Take 1 U nivers 7.5 mg 1-29 tablet by ity of tablet 00:00: mouth [place] 00 daily. [facility] meloxicam Yes [id number] 7.5mg Take 1 U nivers 7.5 mg 1-29 tablet by ity of tablet 00:00: mouth [place] 00 daily. [facility] meloxicam Yes [id number] 7.5mg Take 1 U nivers 7.5 mg 1-29 tablet by ity of tablet 00:00: mouth [place] 00 daily. [facility] meloxicam Yes [id number] 7.5mg Take 1 U nivers 7.5 mg 1-29 tablet by ity of tablet 00:00: mouth [place] 00 daily. [facility] meloxicam Yes [id number] 7.5mg Take 1 U nivers 7.5 mg 1-29 tablet by ity of tablet 00:00: mouth [place] 00 daily. [facility] meloxicam Yes [id number] 7.5mg Take 1 U nivers 7.5 mg 1-29 tablet by ity of tablet 00:00: mouth [place] 00 daily. [facility] meloxicam Yes [id number] 7.5mg Take 1 U nivers 7.5 mg 1-29 tablet by ity of tablet 00:00: mouth [place] 00 daily. [facility] meloxicam Yes [id number] 7.5mg Take 1 U nivers 7.5 mg 1-29 tablet by ity of tablet 00:00: mouth [place] 00 daily. [facility] meloxicam Yes [id number] 7.5mg Take 1 U nivers 7.5 mg 1-29 tablet by ity of tablet 00:00: mouth [place] 00 daily. [facility] meloxicam Yes [id number] 7.5mg Take 1 U nivers 7.5 mg 1-29 tablet by ity of tablet 00:00: mouth [place] 00 daily. [facility] meloxicam 2021-0 Yes [id number] 7.5mg Take 1 U nivers 7.5 mg 1-29 tablet by ity of tablet 00:00: mouth [place] 00 daily. [facility] Branch meloxicam Yes [id number] 7.5mg Take 1 U nivers 7.5 mg 1-29 tablet by ity of tablet 00:00: mouth [place] 00 daily. [facility] Branch meloxicam Yes [id number] 7.5mg Take 1 U nivers 7.5 mg 1-29 tablet by ity of tablet 00:00: mouth [place] 00 daily. [facility] Branch meloxicam Yes [id number] 7.5mg Take 1 U nivers 7.5 mg 1-29 tablet by ity of tablet 00:00: mouth [place] 00 daily. [facility] meloxicam Yes [id number] 7.5mg Take 1 U nivers 7.5 mg 1-29 tablet by ity of tablet 00:00: mouth [place] 00 daily. [facility] meloxicam Yes [id number] 7.5mg Take 1 U nivers 7.5 mg 1-29 tablet by ity of tablet 00:00: mouth [place] 00 daily. [facility] meloxicam Yes [id number] 7.5mg Take 1 U nivers 7.5 mg 1-29 tablet by ity of tablet 00:00: mouth [place] 00 daily. [facility] meloxicam Yes [id number] 7.5mg Take 1 U nivers 7.5 mg 1-29 tablet by ity of tablet 00:00: mouth [place] 00 daily. [facility] meloxicam Yes [id number] 7.5mg Take 1 U nivers 7.5 mg 1-29 tablet by ity of tablet 00:00: mouth [place] 00 daily. [facility] Branch meloxicam 0 Yes [id number] 7.5mg Take 1 U nivers 7.5 mg 1-29 tablet by ity of tablet 00:00: mouth [place] 00 daily. [facility] meloxicam Yes [id number] 7.5mg Take 1 U nivers 7.5 mg 1-29 tablet by ity of tablet 00:00: mouth [place] 00 daily. [facility] meloxicam 0 Yes [id number] 7.5mg Take 1 U nivers 7.5 mg 1-29 tablet by ity of tablet 00:00: mouth [place] 00 daily. [facility] meloxicam 2020-0 Yes [id number] 7.5mg Take 1 U nivers 7.5 mg 1-29 tablet by ity of tablet 00:00: mouth [place] 00 daily. [facility] meloxicam 0 Yes [id number] 7.5mg Take 1 U nivers 7.5 mg 1-29 tablet by ity of tablet 00:00: mouth [place] 00 daily. [facility] meloxicam 0 Yes [id number] 7.5mg Take 1 U nivers 7.5 mg 1-29 tablet by ity of tablet 00:00: mouth 00 daily. [facility] meloxicam 0 Yes [id number] 7.5mg Take 1 U nivers 7.5 mg 1-29 tablet by ity of tablet 00:00: mouth 00 daily. [facility] meloxicam 0 Yes [id number] 7.5mg Take 1 U nivers 7.5 mg 1-29 tablet by ity of tablet 00:00: mouth [place] 00 daily. [facility] meloxicam 0 Yes [id number] 7.5mg Take 1 U nivers 7.5 mg 1-29 tablet by ity of tablet 00:00: mouth 00 daily. [facility] meloxicam 0 Yes [id number] 7.5mg Take 1 U nivers 7.5 mg 1-29 tablet by ity of tablet 00:00: mouth 00 daily. [facility] pantoprazol 0 Yes 40mg Take 40 mg Univers e 40 mg EC 1-15 by mouth ity o f tablet 00:00: daily. [facility] pantoprazol 0 Yes 40mg Take 40 mg Univers e 40 mg EC 1-15 by mouth ity o f tablet 00:00: daily. [facility] pantoprazol 0 Yes 40mg Take 40 mg Univers e 40 mg EC 1-15 by mouth ity o f tablet 00:00: daily. [facility] pantoprazol 0 Yes 40mg Take 40 mg Univers e 40 mg EC 1-15 by mouth ity o f tablet 00:00: daily. [facility] pantoprazol 2021-0 Yes 40mg Take 40 mg Univers e 40 mg EC 1-15 by mouth ity o f tablet 00:00: daily. [place] [facility] pantoprazol 0 Yes 40mg Take 40 mg Univers e 40 mg EC 1-15 by mouth ity o f tablet 00:00: daily. [place] [facility] pantoprazol 0 Yes 40mg Take 40 mg Univers e 40 mg EC 1-15 by mouth ity o f tablet 00:00: daily. [place] [facility] [place] pantoprazol 0 Yes 40mg Take 40 mg Univers e 40 mg EC 1-15 by mouth ity o f tablet 00:00: daily. [place] [facility] [place] pantoprazol 0 Yes 40mg Take 40 mg Univers e 40 mg EC 1-15 by mouth ity o f tablet 00:00: daily. [place] [facility] [place] pantoprazol 0 Yes 40mg Take 40 mg Univers e 40 mg EC 1-15 by mouth ity o f tablet 00:00: daily. [place] [facility] [place] pantoprazol 0 Yes 40mg Take 40 mg Univers e 40 mg EC 1-15 by mouth ity o f tablet 00:00: daily. [place] [facility] [place] pantoprazol 0 Yes 40mg Take 40 mg Univers e 40 mg EC 1-15 by mouth ity o f tablet 00:00: daily. [place] [facility] [place] pantoprazol 0 Yes 40mg Take 40 mg Univers e 40 mg EC 1-15 by mouth ity o f tablet 00:00: daily. [place] [facility] [place] pantoprazol 2020-0 Yes 40mg Take 40 mg Univers e 40 mg EC 1-15 by mouth ity o f tablet 00:00: daily. [place] [facility] [place] pantoprazol 0 Yes 40mg Take 40 mg Univers e 40 mg EC 1-15 by mouth ity o f tablet 00:00: daily. [place] [facility] [place] pantoprazol 2020-0 Yes 40mg Take 40 mg Univers e 40 mg EC 1-15 by mouth ity o f tablet 00:00: daily. [address] pantoprazol 2020-0 Yes 40mg Take 40 mg Univers e 40 mg EC 1-15 by mouth ity o f tablet 00:00: daily. [address] pantoprazol 2020-0 Yes 40mg Take 40 mg Univers e 40 mg EC 1-15 by mouth ity o f tablet 00:00: daily. [place] [facility] [place] pantoprazol 2020-0 Yes 40mg Take 40 mg Univers e 40 mg EC 1-15 by mouth ity o f tablet 00:00: daily. [place] [facility] [place] pantoprazol 0 Yes 40mg Take 40 mg Univers e 40 mg EC 1-15 by mouth ity o f tablet 00:00: daily. [place] [facility] [place] pantoprazol 0 Yes 40mg Take 40 mg Univers e 40 mg EC 1-15 by mouth ity o f tablet 00:00: daily. [place] [facility] [place] pantoprazol 0 Yes 40mg Take 40 mg Univers e 40 mg EC 1-15 by mouth ity o f tablet 00:00: daily. [place] [facility] [place] pantoprazol 0 Yes 40mg Take 40 mg Univers e 40 mg EC 1-15 by mouth ity o f tablet 00:00: daily. [address] pantoprazol 0 Yes 40mg Take 40 mg Univers e 40 mg EC 1-15 by mouth ity o f tablet 00:00: daily. [place] [facility] [place] pantoprazol 0 Yes 40mg Take 40 mg Univers e 40 mg EC 1-15 by mouth ity o f tablet 00:00: daily. [address] pantoprazol 0 Yes 40mg Take 40 mg Univers e 40 mg EC 1-15 by mouth ity o f tablet 00:00: daily. [address] pantoprazol 2020-0 Yes 40mg Take 40 mg Univers e 40 mg EC 1-15 by mouth ity o f tablet 00:00: daily. [address] pantoprazol 0 Yes 40mg Take 40 mg Univers e 40 mg EC 1-15 by mouth ity o f tablet 00:00: daily. [address] pantoprazol 2020-0 Yes 40mg Take 40 mg Univers e 40 mg EC 1-15 by mouth ity o f tablet 00:00: daily. [address] pantoprazol 2020-0 Yes 40mg Take 40 mg Univers e 40 mg EC 1-15 by mouth ity o f tablet 00:00: daily. [address] pantoprazol 2020-0 Yes 40mg Take 40 mg Univers e 40 mg EC 1-15 by mouth ity o f tablet 00:00: daily. [address] pantoprazol Yes 40mg Take 40 mg Univers e 40 mg EC 1-15 by mouth ity o f tablet 00:00: daily. [address] pantoprazol Yes 40mg Take 40 mg Univers e 40 mg EC 1-15 by mouth ity o f tablet 00:00: daily. [address] pantoprazol Yes 40mg Take 40 mg Univers e 40 mg EC 1-15 by mouth ity o f tablet 00:00: daily. [address] pantoprazol Yes 40mg Take 40 mg Univers e 40 mg EC 1-15 by mouth ity o f tablet 00:00: daily. [address] pantoprazol Yes 40mg Take 40 mg Univers e 40 mg EC 1-15 by mouth ity o f tablet 00:00: daily. [address] pantoprazol Yes 40mg Take 40 mg Univers e 40 mg EC 1-15 by mouth ity o f tablet 00:00: daily. [address] pantoprazol Yes 40mg Take 40 mg Univers e 40 mg EC 1-15 by mouth ity o f tablet 00:00: daily. [address] pantoprazol Yes 40mg Take 40 mg Univers e 40 mg EC 1-15 by mouth ity o f tablet 00:00: daily. [address] pantoprazol Yes 40mg Take 40 mg Univers e 40 mg EC 1-15 by mouth ity o f tablet 00:00: daily. [address] COMPOUND COMPOUND Yes FRIDA ALVAREZ AIFLURBIPR [place] MEDICATION MEDICATION 8-22 M.D. OFEN Phy sici 00:00: 10%,AMANTA ans 00 DINE 10%,CYCLOB ENZAPRINE 2%,BACLOFE N 2%,GABAPEN TIN 6%,LIDOCAI NE 2%GIO. TO AFF. AREA 1-2GM 3-4X DAILY [id number] Vital Signs Vital Name Observation Time Observation Value Comments Source Systolic blood 2021-02-08 14:54:00 141 mm[Hg] Demetris negro of [facility] Diastolic blood 2021-02-08 14:54:00 82 mm[Hg] [facility] [place] pressure [facility] Heart rate 2021-02-08 14:54:00 77 /min [facility] [place] [facility] Body height 2021-02-08 14:54:00 175.3 cm [facility] [place] [facility] Body weight 2021-02-08 14:54:00 114.306 kg [facility] [place] [facility] BMI 2021-02-08 14:54:00 37.21 kg/m2 [facility] [place] [facility] Systolic blood 2020-09-28 14:29:00 149 mm[Hg] [facility] [place] pressure [facility] Diastolic blood 2020-09-28 14:29:00 90 mm[Hg] [facility] [place] pressure [facility] Heart rate 2020-09-28 14:29:00 80 /min [facility] [place] [facility] Body height 2020-09-28 14:25:00 175.3 cm [facility] [place] [facility] Body weight 2020-09-28 14:25:00 114.306 kg [facility] [place] [facility] BMI 2020-09-28 14:25:00 37.21 kg/m2 [facility] [place] [facility] Systolic blood 2020-09-13 20:39:00 144 mm[Hg] [facility] [place] [facility] Diastolic blood 2020-09-13 20:39:00 89 mm[Hg] [facility] [place] pressure [facility] Heart rate 2020-09-13 20:30:00 95 /min [facility] [place] [facility] Body height 2020-09-13 20:30:00 175.3 cm [facility] [place] [facility] Body weight 2020-09-13 20:30:00 114.306 kg [facility] [place] [facility] BMI 2020-09-13 20:30:00 37.21 kg/m2 [facility] [place] [facility] Systolic blood 2020-08-28 20:53:00 161 mm[Hg] [facility] [place] pressure [facility] Diastolic blood 2020-08-28 20:53:00 87 mm[Hg] [facility] [place] pressure [facility] Heart rate 2020-08-28 20:48:00 83 /min [facility] [place] [facility] Body height 2020-08-28 20:48:00 175.3 cm [facility] [place] [facility] Body weight 2020-08-28 20:48:00 114.306 kg [facility] [place] [facility] BMI 2020-08-28 20:48:00 37.21 kg/m2 Universi ty of [facility] Systolic blood 2020-08-15 19:07:00 155 mm[Hg] [facility]ity of [place] pressure [facility] Branch Diastolic blood 2020-08-15 19:07:00 92 mm[Hg] [facility] [place] pressure Medical [facility] Body height 2020-08-15 19:00:00 175.3 cm [facility] [place] [facility] Body weight 2020-08-15 19:00:00 114.306 kg Universi ty of [facility] Branch BMI 2020-08-15 19:00:00 37.21 kg/m2 Universi ty of [facility] Systolic blood 2020-07-23 19:23:00 148 mm[Hg] [facility] [place] pressure Medical [facility] Diastolic blood 2020-07-23 19:23:00 89 mm[Hg] [facility] [place] [facility] [place] Heart rate 2020-07-23 19:20:00 73 /min [facility] [place] [facility] Body height 2020-07-23 19:20:00 175.3 cm [facility] [place] [facility] Body weight 2020-07-23 19:20:00 114.488 kg Universi ty of [facility] BMI 2020-07-23 19:20:00 37.27 kg/m2 Universi ty of [facility] Branch Systolic blood 2020-06-29 15:19:00 126 mm[Hg] [facility] [place] pressure Medical [facility] Diastolic blood 2020-06-29 15:19:00 82 mm[Hg] Unive rsity of [facility] Branch Body height 2020-06-29 15:19:00 175.3 cm [facility] [place] [facility] Body weight 2020-06-29 15:19:00 111.131 kg Universi ty of [facility] Branch BMI 2020-06-29 15:19:00 36.18 kg/m2 [facility] [place] [facility] Procedures Procedure Date / Time Performing Clinician Source Performed XR KNEE 3 VW LEFT 2021-02-08 15:34:19 Juancho Kraus [facility] ASSIGNMENT OF BENEFITS 2021-02-08 14:40:41 Doctor Unassigned, No [facility] Name Medical [place] DISABILITY/FMLA 2020-08-15 05:01:00 Doctor Unassigned, No [facility] 2020-08-01 06:01:00 Doctor Unassigned, No Univ ersity [facility] DOCUMENTATION Name Medical Branch XR CHEST 1 VW 2020-07-27 16:28:34 Chayito Patiño [facility] NOTICE OF PRIVACY 2020-07-27 15:14:20 Doctor Unassigned, No [facility] [place] [facility] Name Medical Branch CONSENT/REFUSAL FOR 2020-07-27 15:13:56 Doctor Unassigned, No [facility] Medical [place] ASSIGNMENT OF BENEFITS 2020-07-27 15:13:37 Doctor Unassigned, No [facility] EXTERNAL PROVIDER 2020-07-26 06:01:00 Doctor Unassigned, No Univ [facility] [place] RECORDS [facility] Medical [place] XR KNEE <3 VW LEFT 2020-06-29 15:25:48 Juancho Kraus [facility] Encounters Start End Encounter Admission Attending Care Care Encounter Source Date/Time Date/Time Type Type Clinicians Facility Department ID 2021-11-13 2021-11-13 Outpatient GC_TNC_Lovi PRIV PRIV [id number] [facility] 10:19:00 10:19:00 tt_S [id number] Medica l 2021-11-13 2021-11-13 Outpatient Bala, PRIV PRIV [id number] e-e 00:00:00 00:00:00 Tony Tabares [id number] 2021-11-12 2021-11-12 Outpatient GC_TNC_Lovi PRIV PRIV [id number] [facility] 04:28:00 04:28:00 tt_S [id number] Medica l 2021-11-06 2021-11-06 Outpatient GC_TNC_Lovi PRIV PRIV [id number] [facility] 11:00:00 11:00:00 tt_S [id number] Medica l 2021-02-08 2021-02-08 [facility] [id number] Univers 10:25:00 23:59:00 Encounter Juancho [facility] [id number] ity of [place] 4.2.7.2.686 Akbar as Emile?Blea [phone] Me dical cameron 809 [facility] Office [facility] 2021-02-08 2021-02-08 Office [facility] 1.2.840.114 [id number] Univers 09:43:21 09:58:21 Visit [facility] [id number] it y of [place] 4.2.7.2.686 Akbar as Emile?Blea [id number] Me dical kney 198 [facility] Office [facility] 2021-02-08 2021-02-08 [facility]patient [facility] [id number] Univers 09:45:00 09:45:00 JUANCHO [id number] [facility] 2021-02-08 2021-02-08 Outpatient Summer [facility] [id number] Univers 09:45:00 09:45:00 [facility] 2021-02-08 2021-02-08 Orders Doctor STEPHEN 1.2.840.114 [id number] Univers 00:00:00 00:00:00 Only Unassigned, CALI 350.1.13.[address] [facility] 4.2.7.2.686 Akbar as [phone] [address] 2020-09-28 2020-09-28 Outpatient Summer [facility] [id number] Univers 09:30:00 09:30:00 [facility] [id number] [facility] [place] 2020-09-28 2020-09-28 Outpatient Summer [facility] [id number] Univers 09:30:00 09:30:00 [facility] 2020-09-28 2020-09-28 Office [facility] 1.2.840.114 [id number] Univers 09:11:15 09:26:15 Visit [facility] [id number] it y of Surgical 4.2.7.2.686 Akbar as Specialti [phone] Me dical es 198 [facility] 2020-09-28 2020-09-28 Letter [facility] 1.2.840.114 [id number] Univers 00:00:00 00:00:00 (Out) [facility] [id number] it y of Surgical 4.2.7.2.686 Akbar as Specialti [phone] Ak dical es 198 [facility] 2020-09-13 2020-09-13 Office [facility] 1.2.840.114 [id number] Univers 15:29:07 15:44:07 Visit [facility] 350.1.13.10 it y of Surgical 4.2.7.2.686 Akbar as Specialti [id number] Ak dical es 198 [facility] 2020-09-13 2020-09-13 Outpatient [facility] [id number] Univers 15:30:00 15:30:00 JUANCHO [id number] [facility] 2020-09-13 2020-09-13 [facility] [id number] Univers 15:30:00 15:30:00 [facility] 2020-09-13 2020-09-13 [facility] 1.2.840.114 [id number] Univers 00:00:00 00:00:00 (Out) [facility] [id number] it y of Surgical 4.2.7.2.686 Akbar as Specialti [phone] Ak dical es 198 [facility] 2020-09-10 2020-09-10 Dixon [facility] [id number] Univers 00:00:00 00:00:00 [facility] 350.1.13.10 it y of Surgical 4.2.7.2.686 Akbar as Specialti [phone] Ak dical es 198 [facility] 2020-08-28 2020-08-28 Office [facility] 1.2.840.114 [id number] Univers 15:47:58 16:02:58 Visit [facility] 350.1.13.10 it y of Surgical 4.2.7.2.686 Akbar as Specialti [id number] Me dical es 198 [facility] [place] 2020-08-28 2020-08-28 Outpatient Summer [facility] [id number] Univers 15:45:00 15:45:00 JUANCHO [id number] [facility] 2020-08-28 2020-08-28 Outpatient [facility] [id number] Univers 15:45:00 15:45:00 JUANCHO [facility] 2020-08-28 2020-08-28 [facility] 1.2.840.114 [id number] Univers 00:00:00 00:00:00 (Out) [facility] 350.1.13.10 it y of Surgical 4.2.7.2.686 Akbar as Specialti [id number] Ak dical es 198 [facility] 2020-08-24 2020-08-24 Telephone [facility] [id number] Univers 00:00:00 00:00:00 [facility] 350.1.13.10 it y of Surgical 4.2.7.2.686 Akbar as Specialti [id number] Ak dical es 198 [facility] 2020-08-23 2020-08-23 Telephone [facility] [id number] Univers 00:00:00 00:00:00 [facility] 350.1.13.10 it y of Surgical 4.2.7.2.686 Akbar as Specialti [id number] Ak dical es 198 [facility] 2020-08-15 2020-08-15 Office [facility] 1.2.840.114 [id number] Univers 14:00:12 14:15:12 Visit [facility] 350.1.13.10 it y of Surgical 4.2.7.2.686 Akbar as Specialti [id number] Ak dical es 198 [facility] 2020-08-15 2020-08-15 Outpatient Summer [facility] [id number] Univers 14:15:00 14:15:00 JUANCHO [id number] [facility] 2020-08-15 2020-08-15 Outpatient Summer [facility] [id number] Univers 14:15:00 14:15:00 JUANCHO ity of [facility] 2020-08-15 2020-08-15 Letter Efra [facility] 1.2.840.114 [id number] Univers 00:00:00 00:00:00 (Out) [facility] 350.1.13.10 it y of Surgical 4.2.7.2.686 Akbar as Specialti [id number] Me dical es 198 [facility] 2020-08-15 2020-08-15 Orders Doctor STEPHEN 1.2.840.114 [id number] Univers 00:00:00 00:00:00 Only Unassigned, CALI 350.1.13.[address] [facility] 4.2.7.2.686 Akbar as [phone] [address] 2020-08-08 2020-08-08 Patient [facility] 1.2.840.114 [id number] Univers 00:00:00 00:00:00 [facility] 350.1.13.10 i ty of [facility] [place] PAVK[place]AN[place] [id number] Ak dical [address] [place] 2020-08-03 2020-08-03 Telephone [facility] 1.2.163.930 [id number] Univers 00:00:00 00:00:00 [facility] 350.1.13.10 it y of Surgical 4.2.7.2.686 Akbar as Specialti [id number] Ak dical es 198 [facility] 2020-08-02 2020-08-02 Telephone [facility] [id number] Univers 00:00:00 00:00:00 [facility] 350.1.13.10 it y of Surgical 4.2.7.2.686 Akbar as Specialti [phone] Me dical es 198 [facility] 2020-08-01 2020-08-01 [facility] 1.2.840.114 [id number] Univers 12:50:00 23:59:00 Encounter Chayito HUMPHREY 350.1.13.10 [place] [id number] [facility] 043 Branch 2020-08-01 2020-08-01 Outpatient [facility] NUT [id number] Univers 00:00:00 00:00:00 CHAYITO jason [facility] 2020-08-01 2020-08-01 Orders Doctor MITCHELL 1.2.840.114 [id number] Univers 00:00:00 00:00:00 Only Unassigned, CALI 350.1.13.10 [facility] [place] [facility] 4.2.7.2.686 Akbar as [id number] [facility] 009 Branch 2020-07-27 2020-07-27 Hospital [facility] 1.2.840.114 [id number] Univers 09:10:32 23:59:00 Encounter Chayito Rose 350.1.13.10 [place] [id number] [facility] 8[address] [place] 2020-07-27 2020-07-27 Outpatient [facility] [id number] Univers 09:15:00 09:15:00 CHAYITO josephstormy [facility] 2020-07-27 2020-07-27 Hi Lift Operator Osmin, Nga Lab Main [facility] 1.2.8 40.114 [id number] Univers 08:57:11 09:12:11 Visit Chayito Patiño 350.1.13.10 ity [facility] [place] [facility] [phone] Ak dical [facility] 353 [facility] 2020-07-27 2020-07-27 Outpatient R [facility] [id number] Univers 09:00:00 09:00:00 [id number] ity [facility] 2020-07-27 2020-07-27 Outpatient [facility] [id number] Univers 09:00:00 09:00:00 CHAYITO gomez [facility] 2020-07-26 2020-07-26 Orders Doctor MITCHELL 1.2.840.114 [id number] Univers 00:00:00 00:00:00 Only Unassigned, CALI 350.1.13.10 [facility] [place] [facility] 4.2.7.2.686 Akbar as [id number] [address] 2020-07-25 2020-07-25 Telephone [facility] 1.2.840.114 [id number] Univers 00:00:00 00:00:00 Chayito Yo 350.1.13.10 it y of Surgical 4.2.7.2.686 Akbar as Specialti [id number] Ak dical es 198 [facility] 2020-07-25 2020-07-25 Telephone [facility] 1.2.840.114 [id number] Univers 00:00:00 00:00:00 Chayito Yo 350.1.13.10 it y of Surgical 4.2.7.2.686 Akbar as Specialti [id number] Ak dical es 198 [facility] 2020-07-23 2020-07-23 Office [facility] 1.2.271.517 [id number] Univers 13:09:55 13:59:30 Visit Chayito Yo 350.1.13.10 it y of Surgical 4.2.7.2.686 Akbar as Specialti [id number] Ak dical es 198 [facility] 2020-07-23 2020-07-23 Outpatient [facility] [id number] Univers 13:30:00 13:30:00 CHAYITO [id number] ity [facility] 2020-07-23 2020-07-23 Outpatient [facility] [id number] Univers 13:30:00 13:30:00 CHAYITO ity [facility] 2020-07-11 2020-07-11 Telephone [facility] 1.2.840.114 [id number] Univers 00:00:00 00:00:00 Chayito Yo 350.1.13.10 it y of Surgical 4.2.7.2.686 Akbar as Specialti [id number] Ak dical es 198 [facility] 2020-07-03 2020-07-03 Telephone [facility] 1.2.840.114 [id number] Univers 00:00:00 00:00:00 Chayito L [facility] 350.1.13.10 it y of Surgical 4.2.7.2.686 Akbar as Specialti [phone] Me dical es 198 [facility] 2020-07-02 2020-07-02 Telephone Kaylyn RIEDILSON 1.2.840.114 [id number] Univers 00:00:00 00:00:00 Chayito [facility] 350.1.13.10 it y of Surgical 4.2.7.2.686 Akbar as Specialti [id number] Me dical es 198 [facility] 2020-06-29 2020-06-29 Hospital [facility] 1.2.840.114 [id number] Univers 09:25:47 23:59:00 Encounter Juancho [facility] 350.1.13.10 ity of Surgical 4.2.7.2.686 Akbar as Specialti [id number] Me dical es 809 [facility] 2020-06-29 2020-06-29 Outpatient [facility] [id number] Univers 09:30:00 09:30:00 [facility] 2020-06-29 2020-06-29 Office [facility] 1.2.840.114 [id number] Univers 09:12:33 09:27:33 Visit Juancho Yo 350.1.13.10 it y of Surgical 4.2.7.2.686 Akbar as Specialti [phone] Ak dical es 198 [facility] 2020-06-29 2020-06-29 Outpatient R EFRA [facility] [id number] Univers 09:15:00 09:15:00 JUANCHO [id number] [facility] [place] [facility] 2020-06-28 2020-06-28 Outpatient R KAYLYN [facility] [id number] Univers 08:45:00 08:45:00 CHAYITO [id number] [facility] 2020-06-28 2020-06-28 Outpatient [facility] [id number] Univers 08:45:00 08:45:00 CHAYITO [facility] 2020-02-01 2020-02-01 Telephone STEPHEN Wright [id number] Univers 00:00:00 00:00:00 Patient CALI 350.1.13.10 it y of Does Not HOSP[place] [phone] [address] 2020-01-31 2020-01-31 Telephone Human, [facility] 1.2.269.725 [id number] Univers 00:00:00 00:00:00 Mana [facility] 350.1.13.10 ity of [place]2.[place] - [phone] [facility] [address] [place] 2020-01-31 2020-01-31 Letter STEPHEN Cespedes 1.2.840.114 [id number] Univers 00:00:00 00:00:00 (Out) Myranda Shrestha CALI 350.1.13.10 it y of HOSPITAL 4.2.7.2.686 Akbar as [id number] [address] 2020-01-28 2020-01-28 Laboratory Lab, Adc Fam Pob I [facility] 1.2. 840.114 [id number] Univers 15:00:26 15:20:26 Only Gilda [facility] 350.1.13.10 ity of [place] 4.2.7.2.686 Akbar as Professio [phone] [address] Office [address] 2020-01-28 2020-01-28 Outpatient R [facility] [id number] Univers 15:00:00 15:00:00 HEATHER ity of [facility] 2017-05-28 2017-05-28 J[facility] [id number] [place] 09:30:00 09:30:00 t; claudia [facility] Yusra Mera i, M.D. 2017-05-14 2017-05-14 AppointJASE Reddy UTP [id number] [place] 16:00:00 16:00:00 t; FRIDA ALVAREZ M.D. P hysici EVAN, M.D. ans 2017-04-16 2017-04-16 JASE Granger UTP [id number] [place] 11:00:00 11:00:00 t; FRIDA ALVAREZ M.D. P hysici EVAN M.D. ans 2016-11-07 2016-11-07 Appointmen KIM, [facility] [id number] [place] 13:45:00 13:45:00 t; FRIDA ALVAREZ M.D. P hysici EVAN, M.D. ans 2016-08-08 2016-08-08 Appointmen KIM [facility] [id number] [place] 13:45:00 13:45:00 t; FRIDA ALVAREZ M.D. P hysici EVAN, M.D. ans 2016-01-21 2016-01-21 Appointmen KIM [facility] [id number] [place] 10:15:00 10:15:00 t; FRIDA ALVAREZ M.D. P hysici EVAN, M.D. ans Results Test Test Test Results Result Source Description Time Comments Comments XR KNEE 3 VW 2021-01- Moderate osteoarthrosis University of LEFT 10 with large effusion. No [facility] 17:08:09 acute bony abnormality is Branch present. EXAM: XR KNEE 3 VW LEFT HISTORY: Effusion COMPARISON: June 2020 FINDINGS: Imaging of the left knee demonstrates moderate medial compartment jointspace loss, progressed. Tricompartmental subchondral sclerosis withmarginal osteophyte formation and degenerative tibial spine hypertrophy ispresent. No aggressive bony destructive change or periosteal reaction isseen. A moderate to large sized effusion is present. Vascularcalcifications are present. [facility], Radiant Results Inft User - 02/08/2021 12:09 PM CDT EXAM:XR KNEE 3 VW LEFTHISTORY:Effusion COMPARISON:June 2020FINDINGS: Imaging of the left knee demonstrates moderate medial compartment jointspace loss, progressed. Tricompartmental subchondral sclerosis withmarginal osteophyte formation and degenerative tibial spine hypertrophy ispresent. No aggressive bony destructive change or periosteal reaction isseen. A moderate to large sized effusion is present. Vascularcalcifications are present.IMPRESSIONModerate osteoarthrosis with large effusion.No acute bony abnormality is present. XR CHEST 1 VW 2020-07- EXAM: XR CHEST 1 VW Un iversity of 26 HISTORY: surgery [facility] 16:42:00 COMPARISON: None. Branch FINDINGS: The heart and great vessels are normal and the lungs are well expanded andclear. ? [facility], Radiant Results Inft User - 07/27/2020 10:43 AM CSTEXAM: XR CHEST 1 VWHISTORY: surgery COMPARISON: None.FINDINGS:The heart and great vessels are normal and the lungs are well expanded andclear. XR KNEE <3 VW 2020-06- No sign of fracture or [employer] LEFT 29 dislocation joint spaces [facility] 15:58:17 are maintained Branch
[2021-11-25] MEDS ORDERED: IBUPROFEN 400 MG TAB ONE (17:48)
[2021-11-25] MEDS ORDERED: HYDROCODONE/APAP 7.5/325 MG TAB ONE (17:48)
--- NOTE | 2021-11-25 18:56 | RAD REPORT ---
EXAM DESCRIPTION: RAD - Knee Right 3 View - 11/25/2021 6:16 pm CLINICAL HISTORY: PAIN COMPARISON: No comparisons FINDINGS: No fracture, dislocation or periosteal reaction.No abnormal joint effusions seen. Mild spu rring changes are present along the patella articular margins. Medial compartment is slightly narrowe d. No foreign body or other soft tissue abnormality. IMPRESSION: Mild knee joint degenerative change as detailed. No acute bone or joint finding. Clinical concerns for internal derangement or occult bony injury could be further assessed with MR im aging.
--- NOTE | 2021-11-25 20:08 | ER ---
Nurse's Notes [facility] Name: Patrick Brock Age: 66 yrs Sex: Male : 1955 Arrival Date: 11/25/2021 Time: 17:16 Bed 11 Private MD: Diagnosis: Pain in right knee Presentation: 11/25 17:37 Chief complaint: Patient states: [place] knee pain but greater to right knee that began 2 aa5 weeks ago. Denies injury. Coronavirus screen: At this time, the client does not indicate any symptoms associated with coronavirus-19. Ebola Screen: Patient denies travel to an Ebola-affected area in the 21 days before illness onset. Initial Sepsis Screen: Does the patient meet any 2 criteria? No. Patient's initial sepsis screen is negative. Does the patient have a suspected source of infection? No. Patient's initial sepsis screen is negative. Risk Assessment: Do you want to hurt yourself or someone else? Patient reports no desire to harm self or others. Onset of symptoms was October 2021. 17:37 Acuity: ROB 4 aa5 17:37 Method Of Arrival: Wheelchair aa5 Historical: - Allergies: 17:37 No Known Allergies; aa5 - PMHx: 17:38 Hypercholesterolemia; Acid Reflux; aa5 - PSHx: 17:37 nose sx; Left knee; aa5 - Immunization history:: Adult Immunizations unknown. - Social history:: Smoking status: Patient denies any tobacco usage or history of. Screenin:36 Abuse screen: Denies threats or abuse. Nutritional screening: No deficits noted. kl Tuberculosis screening: No symptoms or risk factors identified. Fall Risk Secondary diagnosis (15 points) impaired mobility, Ambulatory Aid- Crutches/Cane/Walker (15 pts). Gait-. Assessment: 20:33 General: Appears in no apparent distress. comfortable, well groomed, well developed, kl Behavior is calm, cooperative, appropriate for age. Pain: Complains of pain in lateral aspect of right knee Pain currently is 3 out of 10 on a pain scale. at worst was 9 out of 10 on a pain scale. Vital Signs: 17:37 BP 141 / 88; Pulse 75; Resp 18 S; Temp 98.7(TE); Pulse Ox 98% on R/A; Weight 112.04 kg aa5 (R); Height 5 ft. 9 in. (175.26 cm) (R); Pain 5/10; 20:34 BP 141 / 88; Pulse 75; Resp 16; Temp 98.6(T); Pulse Ox 99% on R/A; Pain 3/10; kl 17:37 Body Mass Index 36.48 (112.04 kg, 175.26 cm) aa5 ED Course: 17:16 Patient arrived in ED. mr 17:25 Gomez Lewis PA is PHCP. cp 17:25 Alton Jauregui MD is Attending Physician. cp 17:36 Arm band placed on. aa5 17:38 Triage completed. aa5 18:17 Knee Right 3 View XRAY In Process Unspecified. EDMS 20:07 Miki Jay MD is Referral Physician. cp 20:36 No provider procedures requiring assistance completed. Patient did not have IV access kl during this emergency room visit. Cristobal wrap to right knee Knee immobilizer applied on right knee. 20:37 Patient has correct armband on for positive identification. kl Administered Medications: 17:44 Drug: [place] (HYDROcodone-acetaminophen) (7.5 mg-325 mg) 1 tabs Route: PO; aa5 17:44 Drug: Ibuprofen 800 mg Route: PO; aa5 Medication: 20:37 VIS not applicable for this client. kl Outcome: 20:07 Discharge ordered by . cp 20:37 Discharged to home ambulatory. kl 20:37 Condition: good 20:37 Discharge instructions given to patient, Instructed on discharge instructions, follow up and referral plans. medication usage, Demonstrated understanding of instructions, follow-up care, medications, splint care. 20:37 Patient left the ED. kl Signatures: Dispatcher [employer] EDMS Rosalba Soto RN Almita Cotter mr AliceaChuyita RN LIONEL aa5 Gomez Lewis PA PA cp Corrections: (The following items were deleted from the chart) 17:39 17:37 BP 141 / 88; Pulse 75bpm; Resp 18bpm; Spontaneous; Pulse Ox 98% RA; Temp 98.7F aa5 Temporal; 112.04 kg Reported; Height 5 ft. 9 in. Reported; BMI: 36.4; aa5
--- NOTE | 2021-11-25 20:08 | EDPHYS ---
Physician Documentation [facility] Name: Patrick Brock Age: 66 yrs Sex: Male : 1955 Arrival Date: 11/25/2021 Time: 17:16 Bed 11 Private MD: EDNA Physician Alton Jauregui HPI: 11/25 18:00 This 66 yrs old Male presents to ER via Wheelchair with complaints of Knee cp Pain. Historical: - Allergies: 17:37 No Known Allergies; aa5 - PMHx: 17:38 Hypercholesterolemia; Acid Reflux; aa5 - PSHx: 17:37 nose sx; Left knee; aa5 - Immunization history:: Adult Immunizations unknown. - Social history:: Smoking status: Patient denies any tobacco usage or history of. Vital Signs: 17:37 BP 141 / 88; Pulse 75; Resp 18 S; Temp 98.7(TE); Pulse Ox 98% on R/A; Weight 112.04 kg aa5 (R); Height 5 ft. 9 in. (175.26 cm) (R); Pain 5/10; 20:34 BP 141 / 88; Pulse 75; Resp 16; Temp 98.6(T); Pulse Ox 99% on R/A; Pain 3/10; kl 17:37 Body Mass Index 36.48 (112.04 kg, 175.26 cm) aa5 MDM: 19:15 Patient medically screened. cp 11/25 17:44 Order name: Knee Right 3 View XRAY; Complete Time: 19:27 aa5 11/25 19:27 Interpretation: Report reviewed. cp 11/25 20:00 Order name: Knee Immobilizer; Complete Time: 20:33 cp Administered Medications: 17:44 Drug: [place] (HYDROcodone-acetaminophen) (7.5 mg-325 mg) 1 tabs Route: PO; aa5 17:44 Drug: Ibuprofen 800 mg Route: PO; aa5 Disposition Summary: 11/25/21 20:07 Discharge Ordered Location: Home cp Problem: new cp Symptoms: have improved cp Condition: Stable cp Diagnosis - Pain in right knee cp Followup: cp - With: Miki Jay MD - When: 2 - 3 days - Reason: Recheck today's complaints Discharge Instructions: - Discharge Summary Sheet cp - Elastic Bandage and RICE Therapy cp - How to Use a Knee Immobilizer cp - Acute Knee Pain, Adult cp Forms: - Medication Reconciliation Form cp - Thank You Letter cp - Antibiotic Education cp - Prescription Opioid Use cp Prescriptions: - Diclofenac Sodium 75 mg Oral Tablet Sustained Release - take 1 tablet by ORAL route 2 times per day; 30 tablet; Refills: 0, Product cp Selection Permitted - Tramadol 50 mg Oral Tablet - take 1 tablet by ORAL route every 8 hours as needed; 12 tablet; Refills: 0, cp Product Selection Permitted Signatures: Dispatcher [employer] Chuyita Cole, RN RN aa5 Gomez Lewis PA PA cp
[2021-11-25 21:05] VITALS: BP 141/88
[2021-11-25 21:07] VITALS: TEMP 98.6; O2SAT 99
== END 2021-11-25 20:37 | disposition home or self-care (01) ==
LOC: ER 17:14
DX: M25.561 Pain in right knee (principal)

== ENCOUNTER 2024-01-29 09:08 | Emergency (ER) | payer BC ==
--- NOTE | 2024-01-29 10:08 | RAD REPORT ---
EXAM DESCRIPTION: RAD - Hip Right 2 View - 01/29/2024 9:58 am CLINICAL HISTORY: Right hip pain FINDINGS: No fracture or dislocation is seen. The bones are osteoporotic. Mild osteoarthritis involves the right hip consisting joint space narro wing and subchondral sclerosis
[2024-01-29] MEDS ORDERED: DIAZEPAM 5 MG TABLET ONE (10:18)
[2024-01-29] MEDS ORDERED: HYDROCODONE/APAP 5/325 MG TAB ONE (10:18)
--- NOTE | 2024-01-29 10:35 | ER ---
Nurse's Notes [facility] Name: Patrick Brock Age: 68 yrs Sex: Male : 1955 Arrival Date: 01/29/2024 Time: 09:08 Bed 15 Private MD: Diagnosis: Pain in right hip;Osteoarthritis of hip, unspecified Presentation: 01/28 09:24 Chief complaint: Patient states: RIGHT HIP PAIN STARTED YESTERDAY. DENIES RECENT db INJURY. STATES HAS PHYSICAL THERAPY TWICE A WEEK FOR KNEES BUT IS NOT NEW. Coronavirus screen: Client denies travel out of the [place] in the last 14 days. At this time, the client does not indicate any symptoms associated with coronavirus-19. Ebola Screen: Patient negative for fever greater than or equal to 101.5 degrees Fahrenheit, and additional compatible Ebola Virus Disease symptoms Patient denies exposure to infectious person. Patient denies travel to an Ebola-affected area in the 21 days before illness onset. No symptoms or risks identified at this time. Initial Sepsis Screen: Does the patient meet any 2 criteria? No. Patient's initial sepsis screen is negative. Does the patient have a suspected source of infection? No. Patient's initial sepsis screen is negative. Risk Assessment: Do you want to hurt yourself or someone else? Patient reports no desire to harm self or others. Onset of symptoms was January 28, 2024. 09:24 Method Of Arrival: Wheelchair db 09:24 Acuity: ROB 4 db Triage Assessment: 09:26 General: Appears in no apparent distress. uncomfortable, Behavior is calm, cooperative. db Pain: Complains of pain in RIGHT HIP. Neuro: Level of Consciousness is awake, alert, obeys commands, Oriented to person, place, time, situation. Musculoskeletal: Range of motion: limited in right hip. Historical: - Allergies: 09: No Known Allergies; db - PMHx: : acid reflux; Hypercholesterolemia; Hypertensive disorder; db - PSHx: : left knee; nose sx; db - Immunization history:: Adult Immunizations unknown. - Infectious Disease History:: Denies. - Social history:: Smoking status: Patient denies any tobacco usage or history of. Screenin: [facility] ED Fall Risk Assessment (Adult) History of falling in the last 3 months, db including since admission No falls in past 3 months (0 pts) Confusion or Disorientation No (0 pts) Intoxicated or Sedated No (0 pts) Impaired Gait No (0 pts) Mobility Assist Device Used No (0 pt) Altered Elimination No (0 pt) Score/Fall Risk Level 0 - 2 = Low Risk Oriented to surroundings, Maintained a safe environment. Abuse screen: Denies threats or abuse. Denies injuries from another. Nutritional screening: No deficits noted. Nutritional screening: No deficits noted. Tuberculosis screening: No symptoms or risk factors identified. Assessment: 09:27 Reassessment: Patient appears in no apparent distress at this time. Patient and/or db family updated on plan of care and expected duration. Pain level reassessed. Patient is alert, oriented x 3, equal unlabored respirations, skin warm/dry/pink. SEE TRIAGE FOR INITIAL ASSESSMENT. General: Appears in no apparent distress. comfortable, Behavior is calm, cooperative. Pain: Complains of pain in right hip. 10:40 Reassessment: Patient and/or family updated on plan of care and expected duration. Pain rs5 level reassessed. Patient is alert, oriented x 3, equal unlabored respirations, skin warm/dry/pink. Patient states feeling better. Patient states symptoms have improved. Vital Signs: 09:24 BP 139 / 94; Pulse 88; Resp 16; Temp 97.8; Pulse Ox 97% on R/A; Weight 105.69 kg; db Height 5 ft. 9 in. ; Pain 8/10; 10:40 BP 130 / 80; Pulse 70; Resp 17; Pulse Ox 99% ; rs5 09:24 Body Mass Index 34.41 (105.69 kg, 175.26 cm) db 09:24 Pain Scale: Adult db ED Course: 09:09 Patient arrived in ED. ec2 09:23 Kelvin Liz DO is Attending Physician. ms3 09:24 Patricia Canela, RN is Primary Nurse. db 09:26 Triage completed. db 09:26 Arm band placed on Patient placed in an exam room. db 09:27 Patient has correct armband on for positive identification. Bed in low position. Call db light in reach. Side rails up X 1. Pulse ox on. NIBP on. Pillow given. 10:00 Hip Right 2 View XRAY In Process Unspecified. EDMS 10:34 Miki Jay MD is Referral Physician. ms3 10:40 No provider procedures requiring assistance completed. Patient did not have IV access rs5 during this emergency room visit. Administered Medications: 10:27 Drug: HYDROcodone-acetaminophen PO 5 mg-325 mg 1 tabs PO once Route: PO; rs5 10:40 Follow up: Response: No adverse reaction; Pain is decreased rs5 10:27 Drug: Diazepam PO 5 mg PO once Route: PO; rs5 10:40 Follow up: Response: No adverse reaction; Anxiety decreased rs5 Medication: 10:40 VIS not applicable for this client. rs5 Outcome: 10:35 Discharge ordered by MD. ms3 10:40 Discharged to home via wheelchair, with family, rs5 10:40 Condition: stable rs5 10:40 Discharge instructions given to patient, family, Instructed on discharge instructions, follow up and referral plans. Demonstrated understanding of instructions, follow-up care, medications, Prescriptions given X 2, 10:46 Patient left the ED. rs5 Signatures: Dispatcher [employer] EDKY Kelvin Liz DO DO ms3 Patricia Canela, RN RN db Josh Parada RN RN rs5 Matthew Rubio MD MD ec2
--- NOTE | 2024-01-29 10:35 | EDPHYS ---
Physician Documentation [facility] Name: Patrick Brock Age: 68 yrs Sex: Male : 1955 Arrival Date: 01/29/2024 Time: 09:08 Bed 15 Private MD: ED Physician Kelvin Liz HPI: 01/28 20:55 This 68 yrs old Male presents to ER via Wheelchair with complaints of Hip Pain.ms3 20:55 68-year-old male with past medical history of GERD, hyperlipidemia, hypertension ms3 presents to the emergency department for right hip/buttock pain that radiates down his right leg. Patient states it feels as if his joint is out of place. He states the discomfort is an 8/10. Patient applied ice packs to his right hip last night with improvement in his symptoms. Historical: - Allergies: 09:26 No Known Allergies; db - PMHx: 09:26 acid reflux; Hypercholesterolemia; Hypertensive disorder; db - PSHx: 09:26 left knee; nose sx; db - Immunization history:: Adult Immunizations unknown. - Infectious Disease History:: Denies. - Social history:: Smoking status: Patient denies any tobacco usage or history of. ROS: 20:55 Constitutional: Negative for fever, and chills. Cardiovascular: Negative for chest ms3 pain, and palpitations. Respiratory: Negative for shortness of breath, cough, wheezing, and pleuritic chest pain, Abdomen/GI: Negative for abdominal pain, nausea, vomiting, diarrhea, and constipation, 20:55 MS/extremity: Positive for pain, of the right hip, Exam: 20:55 Constitutional: This is a well developed, well nourished patient who is awake, alert, ms3 and in no acute distress. Head/Face: Normocephalic, atraumatic. Chest/axilla: Normal chest wall appearance and motion. Nontender with no deformity. Cardiovascular: Regular rate and rhythm with a normal S1 and S2. No gallops, murmurs, or rubs. Normal PMI, no JVD. No pulse deficits. Respiratory: Lungs have equal breath sounds bilaterally, clear to auscultation and percussion. No rales, rhonchi or wheezes noted. No increased work of breathing, no retractions or nasal flaring. Abdomen/GI: Soft, non-tender, with normal bowel sounds. No distension or tympany. No guarding or rebound. No evidence of tenderness throughout. Skin: Warm, dry with normal turgor. Normal color with no rashes, no lesions, and no evidence of cellulitis. MS/ Extremity: Pulses equal, no cyanosis. Neurovascular intact. Full, normal range of motion. Vital Signs: 09:24 BP 139 / 94; Pulse 88; Resp 16; Temp 97.8; Pulse Ox 97% on R/A; Weight 105.69 kg; db Height 5 ft. 9 in. ; Pain 8/10; 10:40 BP 130 / 80; Pulse 70; Resp 17; Pulse Ox 99% ; rs5 09:24 Body Mass Index 34.41 (105.69 kg, 175.26 cm) db 09:24 Pain Scale: Adult db MDM: 09:40 Patient medically screened. ms3 20:55 Differential diagnosis: hip fracture, bursitis, arthritis, strain. Data reviewed: vital ms3 signs, nurses notes, radiologic studies, and as a result, I will discharge patient. I considered the following discharge prescriptions or medication management in the emergency department Medications were administered in the Emergency Department. See MAR. Independent interpretation of the following test(s) in the Emergency Department X-Ray: My interpretation is Right hip x-ray images reviewed by me did not reveal fracture. Counseling: I had a detailed discussion with the patient and/or guardian regarding the historical points, exam findings, and any diagnostic results supporting the discharge/admit diagnosis, radiology results, the need for outpatient follow up, to return to the emergency department if symptoms worsen or persist or if there are any questions or concerns that arise at home. Special discussion: I discussed with the patient/guardian in detail that at this point there is no indication for admission to the hospital. It is understood, however, that if the symptoms persist or worsen the patient needs to return immediately for re-evaluation. ED course: Discussed treatment plan with patient. Patient states symptoms have improved, patient is alert and orient x 4, no apparent distress, nontoxic-appearing, speaking full sentences. Patient to follow-up with Dr. Mistry in 2 to 3 days. All questions were answered. Return precautions discussed include worsening symptoms, or any other concerns. 01/28 09:42 Order name: Hip Right 2 View XRAY ms3 Administered Medications: 10:27 Drug: HYDROcodone-acetaminophen PO 5 mg-325 mg 1 tabs PO once Route: PO; rs5 10:40 Follow up: Response: No adverse reaction; Pain is decreased rs5 10:27 Drug: Diazepam PO 5 mg PO once Route: PO; rs5 10:40 Follow up: Response: No adverse reaction; Anxiety decreased rs5 Disposition Summary: 01/29/24 10:35 Discharge Ordered Notes: Location: Home ms3 Condition: Stable ms3 Diagnosis - Pain in right hip ms3 - Osteoarthritis of hip, unspecified ms3 Followup: ms3 - With: Miki Mistry MD - When: 2 - 3 days - Reason: Recheck today's complaints Discharge Instructions: - Discharge Summary Sheet ms3 - Musculoskeletal Pain ms3 - Hip Pain ms3 - Arthritis, Wryl-bf-Fion ms3 Forms: - Medication Reconciliation Form ms3 - Antibiotic Education ms3 - Prescription Opioid Use ms3 - Patient Portal Instructions ms3 - Leadership Thank You Letter ms3 Prescriptions: - Ibuprofen 600 mg Oral Tablet - take 1 tablet ORAL route every 6 hours As needed take with food; 30 tablet; ms3 Refills: 0, Product Selection Permitted - Cyclobenzaprine 10 mg Oral Tablet - take 1 tablet ORAL route every 8 hours As needed; 30 tablet; Refills: 0, ms3 Product Selection Permitted Signatures: Dispatcher [employer] Kelvin Matias DO DO ms3 Patricia Canela, RN RN db Josh Parada RN RN rs5
[2024-01-29 11:00] VITALS: BP 139/94; TEMP 97.8; O2SAT 97
== END 2024-01-29 10:46 | disposition home or self-care (01) ==
LOC: ER 09:08
DX: M16.11 Unilateral primary osteoarthritis, right hip (principal)
CPT/HCPCS: 99283